=== PATIENT | male | born 1960 | race African-American/Black ===

== ENCOUNTER 2016-06-13 10:27 | Inpatient (IN) | payer OTHER ==
[~2016-06-13] VITALS: Ht 170.2 cm; Wt 55.4 kg
--- NOTE | 2016-06-13 11:03 | NUR ---
PT BROUGHT IN VIA [facility] TO BE EVALUATED FOR THE COMPLAINT OF N/V/D WHICH BEGAN LAST NIGHT AFTER THE PT ATE [facility]
[2016-06-13 11:56] LABS: BASOPHIL % 0.2 % (0-2); PLATELET COUNT 190 x10^3mcL (130-400); RED CELL DISTRIBUTION WIDTH 13.5 % (11.5-14.5)
[2016-06-13 11:57] LABS: CALCIUM 8.8 mg/dL (8.5-10.1); CARBON DIOXIDE 32.2 mmol/L (21-32); CHLORIDE SERUM 105 mmol/L (98-107); CREATININE SERUM 1.1 mg/dL (0.7-1.3); GFR1 > 60 mL/min; GLUCOSE SERUM 101 mg/dL (74-106); POTASSIUM SERUM 4.9 mmol/L (3.5-5.1); SODIUM SERUM 142 mmol/L (136-145)
--- NOTE | 2016-06-13 12:04 | NUR ---
PT WENT TO AND FROM CT WITHOUT INCIDENCE
[2016-06-13 12:05] LABS: ALBUMIN 3.9 g/dL (3.4-5.0); ALKALINE PHOSPHATASE 75 U/L (46-116); ALT/SGPT 31 U/L (16-63); AST/SGOT 23 U/L (15-37); BILIRUBIN TOTAL 0.7 mg/dL (0.20-1.00); LIPASE 190 IU/L (73-393); TOTAL PROTEIN, SERUM 7.5 g/dL (6.4-8.2)
[2016-06-13 12:07] LABS: AMYLASE 128 U/L (25-115)
--- NOTE | 2016-06-13 13:17 | NUR ---
REPROT CALLED TO GEORGETTE BEARD TO ASSUME CARE FOR THIS PT POST TRANSFER FROM ED TO TELE UNIT
[2016-06-13 13:50] VITALS: BP 120/77
--- NOTE | 2016-06-13 13:54 | NUR ---
RECEIVED PT FROM ED VIA [facility]. ORIENTED PT TO ROOM AND SURROUNDINGS. IV NOTED TO LAC PATENT AND INTACT. TELE 38 PLACED ON PT READING NSR. INSTRUCTED PT ON THE USE OF CALL LIGHT FOR ASSISTANCE. ENDORSED PT TO PRIMARY NURSE KISHA
[2016-06-13 13:58] LABS: MAGNESIUM 2.2 mg/dL (1.8-2.4); PHOSPHOROUS 2.7 mg/dL (2.5-4.9)
[2016-06-13 13:59] LABS: CHOLESTEROL/HDL RATIO 2.2
[2016-06-13 14:03] LABS: T3 TOTAL 1.07 ng/mL
[2016-06-13 14:10] LABS: FREE T4 0.81 ng/dL (0.76-1.46); FREE THYROXINE INDEX 2.4 ug/dL (1.4-4.5); T4(THYROXINE) 7.4 ug/dL (4.7-13.3)
--- NOTE | 2016-06-13 16:24 | NUR ---
PATIENT SITTING UP IN BED WITH EYES CLOSED EASILY AROUSABLE ORIENTED X4, DENIES PAIN, AND DENIES N/V, CALL LIGHT AND BELONGINGS WITHIN REACH, AND WILL CONTINUE TO MONITOR.
[2016-06-13 16:35] VITALS: BP 126/69
--- NOTE | 2016-06-13 17:35 | NUR ---
MADE AWARE OF WBC 12.1, BUT LACTIC ACID 1.8, NO NEW ORDERS AND WILL CONTINUE TO MONITOR.
[2016-06-13 17:59] LABS: UA SPECIFIC GRAVITY >=1.030 (1.005-1.035); microscopic required? YES; urine erythrocyte TRACE (NEGATIVE)
[2016-06-13 18:08] LABS: AMPHETAMINE QUAL UR NONE DETECTED (NEG <=1000)
--- NOTE | 2016-06-13 18:36 | NUR ---
MADE AWARE OF WBC 12.1, NO N/V SINCE PATIENT CAME FROM ER, AND MADE AWARE OF CT SCAN OF ABD RESULTS, ALSO MADE AWARE THERE IS NO CODE STATUS, NO NEW ORDERS AND WILL CONTINUE TO MONITOR.
--- NOTE | 2016-06-13 18:45 | NUR ---
PATIENT SITTING UP IN BED WITH EYES CLOSED EASILY AROUSABLE, ORIENTED X4, DENIES PAIN, DENIES N/V, IV TO LAC CDI AND INFUSING NS AT 100ML/HR FREELY, BED TO LOWEST POSITION, SIDE RAILS UP X2, CALL LIGHT AND BELONGINGS WITHIN REACH AND WILL ENDORSE TO NIGHT NURSE.
[2016-06-13 18:53] VITALS: BP 102/61
--- NOTE | 2016-06-13 19:52 | NUR ---
PATIENT C/O PAIN CRAMPING TO STOMACH 09/05 BUT REFUSING MORPHINE AT THIS TIME. DENIES ANY NAUSEA OR VOMITING. ALTERNATIVE TREATMENT WITH COLD AIR USED PATIENT STATES WORKS FOR HIM. WILL CONTINUE TO MONITOR. CALL LIGHT WITHIN REACH.
[2016-06-13 22:16] VITALS: BP 97/59
--- NOTE | 2016-06-13 22:48 | NUR ---
SPOKE TO DR. BANG ABOUT CT ABD RESULTS, PER DR. BANG WILL HOLD OFF ON DIET ORDERS AT THIS TIME DUE TO PATIENT STILL C/O ABD PAIN, BUT NO NAUSEA, VOMITING NOTED. ALSO PER DR. BANG NO NEED FOR NASOGASTRIC TUBE. WILL CONTINUE TO MONITOR AND AWAITING NEW ORDERS.
[2016-06-14 06:06] VITALS: BP 102/63
[2016-06-14 06:18] LABS: BASOPHIL % 0.4 % (0-2); PLATELET COUNT 171 x10^3mcL (130-400); RED CELL DISTRIBUTION WIDTH 13.3 % (11.5-14.5)
[2016-06-14 06:38] LABS: CALCIUM 7.5 mg/dL (8.5-10.1); CARBON DIOXIDE 25.2 mmol/L (21-32); CHLORIDE SERUM 107 mmol/L (98-107); CREATININE SERUM 1.2 mg/dL (0.7-1.3); GFR1 > 60 mL/min; GLUCOSE SERUM 83 mg/dL (74-106); POTASSIUM SERUM 4.2 mmol/L (3.5-5.1); SODIUM SERUM 141 mmol/L (136-145)
--- NOTE | 2016-06-14 06:44 | NUR ---
PATIENT QUIETLY RESTING IN BED AT THIS TIME. NOTED 3 EPISODES OF LOOSE WATERY STOOLS. NO NAUSEA OR VOMITING NOTED THROUGHOUT SHIFT. ABD PAIN VERBALIZED, BUT PATIENT REFUSED PAIN MEDICATIONS. IVF INFUSING TO LAC AT 100ML/HR NS, NO INFILTRATION NOTED. CALL LIGHT WITHIN REACH AND SAFETY PRECAUTIONS IN PLACE. WILL ENDORSE CARE TO AM RN.
[2016-06-14 07:15] LABS: ALBUMIN 2.9 g/dL (3.4-5.0)
--- NOTE | 2016-06-14 07:20 | NUR ---
PT SEEN REST ON BED, ALERT, ORIENTED. PT REPORTED HAD BM X 5 WITH WATERY STOOL, BUT NO MORE NAUSEA. PT BREATHING ON RA, EVEN, UNLABORED. IV SITE PATENT, INTACT. IVF INFUSING WELL.
[2016-06-14 07:40] VITALS: BP 95/65
[2016-06-14 09:35] VITALS: BP 104/66
[2016-06-14 17:45] VITALS: BP 117/78
--- NOTE | 2016-06-14 19:10 | NUR ---
RECEIVED PATIENT RESTING IN BED. PATIENT IS ALERT, AWAKE, AND ORIENTED X4. LUNG SOUNDS CLEAR. NO SHORTNESS OF BREATH NOTED. BOWEL SOUNDS ACTIVE. PATIENT REPORTS HAVING LOOSE STOOLS. PATIENT DENIES ABD PAIN OR N/V. IV FLUID INFUSING TO LAC PER DOCTOR'S ORDER. INTACT AND PATENT. SAFETY AND COMFORT MEASURES IN PLACE. BED IN LOWEST POSITION. CALL LIGHT WITHIN REACH. WILL CONTINUE TO MONITOR.
[2016-06-14 21:13] VITALS: BP 117/76
--- NOTE | 2016-06-15 05:23 | NUR ---
PATIENT SLEPT WELL DURING SHIFT. NO DISTRESS NOTED. IV FLUID INFUSING WELL. CALL LIGHT WITHIN REACH. WILL CONTINUE TO MONITOR.
[2016-06-15 06:01] VITALS: BP 108/68
[2016-06-15 06:14] LABS: CALCIUM 7.8 mg/dL (8.5-10.1); CARBON DIOXIDE 27.9 mmol/L (21-32); CHLORIDE SERUM 107 mmol/L (98-107); CREATININE SERUM 1.1 mg/dL (0.7-1.3); GFR1 > 60 mL/min; GLUCOSE SERUM 78 mg/dL (74-106); POTASSIUM SERUM 3.6 mmol/L (3.5-5.1); SODIUM SERUM 142 mmol/L (136-145)
[2016-06-15 06:29] LABS: BASOPHIL % 0.3 % (0-2); PLATELET COUNT 170 x10^3mcL (130-400); RED CELL DISTRIBUTION WIDTH 13.1 % (11.5-14.5)
[2016-06-15 06:32] LABS: ALBUMIN 2.8 g/dL (3.4-5.0)
--- NOTE | 2016-06-15 07:05 | NUR ---
PT SEEN SLEEPING. PT BREATHING ON RA, EVEN, UNLABORED. IV SITE PATENT, INTACT. IVF INFUSING WELL.
--- NOTE | 2016-06-15 07:50 | NUR ---
PT REFUSED TO TAKE CLEAR LIQUID DIET. AND WOULD LIKE TO BE DISCHARGED TODAY. PT REPORT NO BAM SINCE YESTERDAY.
[2016-06-15 07:55] VITALS: BP 107/70
[2016-06-15 08:28] VITALS: Ht 170.2 cm; Wt 55.4 kg
[2016-06-15 08:55] VITALS: BP 116/74
[2016-06-15] MEDS ORDERED: ZOF4 PO (12:31)
[2016-06-15 12:45] VITALS: BP 116/74
== END 2016-06-15 13:17 | disposition home or self-care (01) | DRG 247 ==
LOC: ED 10:27 → MU 13:07 → DU 13:07 → MU 06-14 10:19
PROVIDERS: Emergency Medicine; Family Medicine; ADMIT Family Medicine
DX: K56.7 Ileus, unspecified (principal); K85.90 Acute pancreatitis without necrosis or infection, unspecified; E44.0 Moderate protein-calorie malnutrition; E83.51 Hypocalcemia; K52.9 Noninfective gastroenteritis and colitis, unspecified; E86.0 Dehydration; R31.9 Hematuria, unspecified; Z68.1 Body mass index [BMI] 19.9 or less, adult
CPT/HCPCS: 80307; 83880; 84439; 87046; 87046-59; J2405; J3010; J7030; Q0092